=== PATIENT | female | born 1975 | race Hispanic/Latino ===

== ENCOUNTER 2024-08-13 00:10 | Inpatient (IN) | payer SELFPAY ==
[2024-08-13 01:52] VITALS: BMI 30.9
[2024-08-13] MEDS ORDERED: Acetaminophen 325 MG TAB PO PRN (02:43)
[2024-08-13] MEDS ORDERED: Dextrose 50% Abboject 50 ML SYRINGE SLOW IVP PRN (02:47)
[2024-08-13] MEDS ORDERED: Dextrose 5% in Water 1,000 ML IV PRN (02:47)
[2024-08-13] MEDS ORDERED: Glucagon 1 MG/ML KIT IM PRN (02:47)
[2024-08-13] MEDS: Piperacillin/Tazobactam 3.375 GM in Sodium Chloride 0.9% 100 ML IVPB SCH (04:11)
[2024-08-13] MEDS: Ondansetron PF 4 MG/2 ML Vial IVP PRN (04:11)
[2024-08-13] MEDS: Morphine 4 MG/ML VIAL SLOW IVP PRN (04:12)
[2024-08-13 07:41] LABS: #Basophils 0.05 10x3/uL (0.0-0.2); %Basophils 0.9 % (0.0-1.0); %Eosinophils 1.7 % (0.0-10.0); %Lymphocytes 44.2 % (21.0-51.0); %Monocytes 5.9 % (0.0-10.0); %Neutrophils 47.1 % (42.0-75.0); Hematocrit 36.7 % (36.0-47.0); Hemoglobin 12.3 g/dL (12.0-16.0); Mean Corpuscular HGB CONC 33.5 g/dL (32.0-36.0); Mean Corpuscular Hemoglobin 29.5 pg (27.0-31.0); Mean Platelet Volume 10.2 fL (7.4-10.4); Platelet Count 299 10x3/uL (130-400); RBC Distribution Width 12.4 % (11.5-14.5); Red Blood Cell (RBC) Count 4.17 mill/uL (4.20-5.40)
[2024-08-13] MEDS ORDERED: Ondansetron PF 4 MG/2 ML Vial ONE (07:48)
[2024-08-13] MEDS ORDERED: Rocuronium Bromide 10 MG/ML (10ML VIAL) ONE (07:48)
[2024-08-13] MEDS ORDERED: Lidocaine 2% PF 5 ML VIAL ONE (07:48)
[2024-08-13] MEDS ORDERED: Midazolam HCl 2 mg/2 ml Vial ONE (07:49)
[2024-08-13] MEDS ORDERED: PROPOFOL 20 ML ONE ×2 (07:49→07:51)
[2024-08-13] MEDS ORDERED: fentaNYL PF 100 MCG/2 ML SYRINGE ONE (07:49)
[2024-08-13] MEDS ORDERED: Indomethacin 50 MG SUPP ONE (07:50)
[2024-08-13] MEDS ORDERED: Iopamidol 30 ML ONE (07:51)
[2024-08-13 08:03] LABS: ALT (SGPT) 458 U/L (8-55); AST (SGOT) 279 U/L (5-34); Albumin 3.6 g/dL (3.5-5.0); Alkaline Phosphatase 349 U/L (40-110); Anion Gap 13 mmol/L (10-20); BUN (Urea Nitrogen) 6 mg/dL (7.0-18.7); Bilirubin, Total 0.5 mg/dL (0.2-1.2); Calc. Creatinine Clearance 122 mL/min (70-130); Calcium 8.6 mg/dL (7.8-10.44); Carbon Dioxide 24 mmol/L (22-29); Chloride 103 mmol/L (98-107); Estimated GFR 104; Globulin 3.9 g/dL (2.4-3.5); Glucose 102 mg/dL (70-105); Potassium 3.4 mmol/L (3.5-5.1); Protein, Total 7.5 g/dL (6.0-8.3); Sodium 137 mmol/L (136-145)
[2024-08-13] MEDS ORDERED: SUGAMMADEX SODIUM 200 MG/2 ML VIAL ONE ×2 (08:36→08:51)
[2024-08-13] MEDS ORDERED: Promethazine HCl 12.5 MG in Sodium Chloride 0.9% 50 ML IVPB PRN (10:07)
[2024-08-13] MEDS: FLU (Fluarix Triv) TS24-25(6MOS UP)/PF 45 MCG/0.5 ML Syringe IM ONE (10:07)
[2024-08-13] MEDS: Famotidine/PF 20 mg/2ml Vial SLOW IVP SCH (10:12)
[2024-08-13] MEDS ORDERED: LevoFLOXacin 500 mg/D5W 500 MG in Premix 1 BAG IVPB SCH (13:00)
[2024-08-13] MEDS: Lactated Ringer's 1,000 ML IV SCH (13:30)
[2024-08-13] MEDS: Scopolamine 1 mg/72 hour Patch TD SCH (13:30)
[2024-08-13] MEDS: Ondansetron ODT 4 MG TAB SL PRN (13:30)
[2024-08-13] MEDS: LevoFLOXacin 750 mg/D5W 750 MG in Premix 1 BAG IVPB SCH (13:39)
[2024-08-13] MEDS: Insulin Lispro 100 UNIT/ML 10 ML VIAL SC PRN ×2 (16:48→21:39)
[2024-08-13] MEDS: Ketorolac Tromethamine 30 MG (1 mL) VIAL IVP SCH (17:10)
[2024-08-13] MEDS: Acetaminophen 500 MG TAB PO SCH (17:13)
[2024-08-14] MEDS ORDERED: Bupivacaine 0.25% HCL 30 ML VIAL ONE (07:34)
[2024-08-14] MEDS ORDERED: EPINEPHrine 1 MG/ML VIAL ONE (07:34)
[2024-08-14] MEDS ORDERED: Midazolam HCl 2 mg/2 ml Vial ONE (07:52)
[2024-08-14] MEDS ORDERED: fentaNYL PF 100 MCG/2 ML SYRINGE ONE ×2 (07:54→09:00)
[2024-08-14] MEDS ORDERED: PROPOFOL 20 ML ONE (07:54)
[2024-08-14] MEDS ORDERED: SUGAMMADEX SODIUM 200 MG/2 ML VIAL ONE (08:09)
[2024-08-14] MEDS ORDERED: Ibuprofen 600 MG TAB PO PRN (08:16)
[2024-08-14] MEDS: traMADol HCl 50 MG TAB PO SCH (08:45)
[2024-08-14] MEDS ORDERED: Promethazine HCl 25 MG/ML VIAL IM PRN (08:52)
[2024-08-14] MEDS ORDERED: Ondansetron HCl/PF 4 MG/2 ML Vial IVP PRN (08:52)
[2024-08-14] MEDS ORDERED: HYDROmorphone 2 MG/ML VIAL SLOW IVP PRN (08:52)
[2024-08-14] MEDS ORDERED: Ondansetron ODT 4 MG TAB PO PRN (09:28)
[2024-08-14] MEDS ORDERED: fentaNYL 50 mcg/mL 1 mL Vial ONE (09:37)
[2024-08-14 10:17] VITALS: TEMP 97.7
[2024-08-14] MEDS: traMADol HCl 50 MG TAB PO PRN (10:49)
[2024-08-14 11:18] LABS: ALT (SGPT) 228 U/L (8-55); AST (SGOT) 77 U/L (5-34); Albumin 3.3 g/dL (3.5-5.0); Alkaline Phosphatase 241 U/L (40-110); Anion Gap 12 mmol/L (10-20); BUN (Urea Nitrogen) 15 mg/dL (7.0-18.7); Bilirubin, Total 0.3 mg/dL (0.2-1.2); Calc. Creatinine Clearance 110 mL/min (70-130); Calcium 8.4 mg/dL (7.8-10.44); Carbon Dioxide 23 mmol/L (22-29); Chloride 103 mmol/L (98-107); Estimated GFR 92; Globulin 3.5 g/dL (2.4-3.5); Glucose 252 mg/dL (70-105); Potassium 4.1 mmol/L (3.5-5.1); Protein, Total 6.8 g/dL (6.0-8.3); Sodium 134 mmol/L (136-145)
[2024-08-14] MEDS: metFORMIN 500 MG TAB PO SCH (11:51)
[2024-08-14 13:18] VITALS: BP 123/77
[2024-08-14] MEDS: Ketorolac Tromethamine 30 MG (1 mL) VIAL IVP SCH (14:22)
[2024-08-14] MEDS ORDERED: metFORMIN 500 MG TAB PO SCH (17:00)
[2024-08-14] MEDS ORDERED: glyBURIDE 5 MG TAB PO SCH (17:00)
== END 2024-08-14 15:25 | disposition home or self-care (01) | DRG 419 ==
LOC: SURG B 01:23
PROVIDERS: ADMIT Student in an Organized Health Care Education/Training Program; ATTEND Family Medicine
PROC: 0FC98ZZ Extirpation of Matter from Common Bile Duct, Via Natural or Artificial Opening Endoscopic (ICD-10-PCS; principal; 2024-08-13)
PROC: 0FT44ZZ Resection of Gallbladder, Percutaneous Endoscopic Approach (ICD-10-PCS; 2024-08-14)
PROC: 3E033XZ Introduction of Vasopressor into Peripheral Vein, Percutaneous Approach (ICD-10-PCS; 2024-08-14)
DX: K80.42 Calculus of bile duct with acute cholecystitis without obstruction (principal); E11.9 Type 2 diabetes mellitus without complications; E87.6 Hypokalemia; Z98.890 Other specified postprocedural states; Z82.49 Family history of ischemic heart disease and other diseases of the circulatory system; Z79.899 Other long term (current) drug therapy; Z79.84 Long term (current) use of oral hypoglycemic drugs
CPT/HCPCS: 36415; 36416; 74330; 80053; 85025; 88304; C1889; J0171; J0665; J1815; J1885; J1956; J2250; J2272; J2405; J2543; J2704; J3010; J3490; J7120; Q0162; Q9967